=== PATIENT | female | born 1960 | race Caucasian/White ===

== ENCOUNTER 2021-03-06 10:23 | Observation (INO) | payer OTHER ==
[~2021-03-06] VITALS: Ht 162.6 cm; Wt 121.0 kg
[~2021-03-06 10:23] MED LIST: ADALAT CC30 MG PO; ADVIL200 MG PO; BACTRIM DS1 TAB PO; BACTROBAN TOP; BUMETANIDE1 MG PO; CEFAZOLIN SODIUM2 GM IV; CEPHALEXIN500 MG PO; CHLORTHALIDONE25 MG PO; CIPROFLOXACN750 MG PO; CLONIDINE0.1 MG PO; CYMBALTA60 MG PO; DAPSONE100 MG PO; DAPSONE25 MG PO; DOXYCYC MONO100 M2 PO; FERROUS SULFAT325 MG PO; FLORASTOR250 M1 PO; FLUARIX QUADRIV1 IN1 IM; FLUCONAZOLE100 MG PO; FUROSEMIDE40 MG PO; GABAPENTIN400 M2 PO; GLIPIZIDE ER5 M1 PO; GLIPIZIDE5 MG PO; HYDROCHLOROT12.5 M1 PO; HYDROCORTISO2.51 EX; HYTONE2.5 % EX; IRON325 M1 PO; K-DUR/KLOR-CON20 MEQ PO; KEFLEX500 M1 PO; LASIX20 MG PO; LEVAQUIN750 MG PO; LISINOP/HCTZ1 TA1 PO; LISINOPRIL10 MG PO; LISINOPRIL20 M1 PO; METOLAZONE2.5 MG PO; METOPROL TAR25 MG PO; MUPIROCIN21; MYCOPHENOLAT250 MG PO; NEURONTIN400 MG PO; NORVASC10 M1 PO; NYSTOP100000 UNI TOP; OMEPRAZOLE20 M1 PO; OXYCODONE HCL5 MG PO; PREDNISONE10 MG PO; PREDNISONE20 MG PO; PRILOSEC20 MG PO; PROTOPIC0.1 % EX; SAVELLA50 MG PO; SILVER SULFA1 % TOP; TACROLIMUS0.1 %; TENORMIN25 M1 PO; TORADOL PO; TRAMADOL HCL50 MG PO; TYLENOL 8 HOUR650 MG PO; ULTRAM50 M1 PO; ULTRAM50 MG PO; VICOPROFEN PO; VITAMIN B-121000 MCG PO; ZANTAC 150 PO; ZOFRAN4 M1 OR
--- NOTE | 2021-03-06 10:23 | NUR ---
PT IMMEDIATLY TO TREATMENT AREA. PT INSTRUCTED ON PLAN OF CARE.
[2021-03-06 11:08] LABS: IMMATURE GRANULOCYTES 0.6 % (0.0-5.0); MEAN CELL VOLUME 94.2 fL CALC (80.0-100.0); MEAN CORPUSCULAR HGB 29.6 pG CALC (26.0-32.0); MEAN CORPUSCULAR HGB CONC 31.4 g/dL CAL (32.0-36.0); NEUT# 8.39 thou/uL (2.00-7.15); RED BLOOD COUNT 4.33 mill/uL (4.20-5.60); RED CELL DISTRI WIDTH 15.2 % (11.5-15.5)
[2021-03-06 11:09] LABS: HEMATOCRIT 40.8 % (37.0-47.0); HEMOGLOBIN 12.8 g/dl (12.0-16.0)
[2021-03-06 11:26] LABS: BUN 7 mg/dL (7-17); BUN/CREATININE RATIO 11 (12-20 (CALC)); CARBON DIOXIDE 29 mmol/l (22-30); CHLORIDE 94 mmol/l (95-108); CREATININE 0.6 mg/dL (0.5-1.0); GFR > 60 ML/MIN (>=60 (CALC)); GFR FOR AFR.AMER. > 60 ML/MIN (>=60 (CALC)); SGOT/AST 20 u/l (14-36); SODIUM 133 mmol/l (137-146)
[2021-03-06 11:29] LABS: ALBUMIN 4.2 g/dL (3.2-5.0); ALKALINE PHOSPHATASE 132 u/l (38-126); ANION GAP 13 (6-22 (CALC)); BILIRUBIN, TOTAL 1.5 mg/dL (0.0-1.4); POTASSIUM 3.2 mmol/l (3.5-5.1); TOTAL PROTEIN 8.7 g/dL (6.3-8.2)
--- NOTE | 2021-03-06 11:30 | NUR ---
RESTING ON STRETCHER. CALL FERRIS WITHIN REACH.
[2021-03-06 11:39] LABS: MYOGLOBIN 49 ng/mL (0 - 62)
--- NOTE | 2021-03-06 11:40 | NUR ---
BP INCREASING. MD AT BEDSIDE NEW ORDERS RECEIVED.
--- NOTE | 2021-03-06 12:05 | NUR ---
PT COMPLAINS OF SUDDEN ONSET CHEST HEAVINESS AFTER ADMINISTRATION OF MORPHINE AND LABETALOL. REPEAT EKG OBTAINED AND MD AT BEDSIDE. PT HYPOTENSIVE AT 80/46. NEW ORDER RECEIVED TO ADMINISTER NSS 1LITER BOLUS
--- NOTE | 2021-03-06 13:00 | NUR ---
RESTING ON STRETCHER. CALL FERRSI WITHIN REACH. RESTING COMFORTABLY
[2021-03-06 14:00] LABS: URINE BILIRUBIN - DIPSTICK NEGATIVE (NEGATIVE); URINE BLOOD DIPSTICK NEGATIVE (NEGATIVE); URINE COLOR YELLOW; URINE GLUCOSE - DIPSTICK 500 mg/dL (NEGATIVE); URINE KETONE TRACE mg/dL (NEGATIVE); URINE LEUK ESTERASE TRACE (NEGATIVE); URINE PH 8.5 (4.5-8.0); URINE PROTEIN - DIPSTICK TRACE mg/dL (NEG-TRACE); URINE UROBILINOGEN - DIPSTICK 0.2 E.U./dL (0.2)
--- NOTE | 2021-03-06 14:00 | NUR ---
RESTING ON STRETCHER. CALL FERRIS WITHIN REACH. AWAITNING ROOM ASSIGNMENT
[2021-03-06 14:01] LABS: URINE NITRITE - DIPSTICK POSITIVE (Negative)
[2021-03-06 14:02] LABS: URINE BACTERIA MANY hpf; URINE EPITHELIAL CELLS MODERATE EPI/hpf (0-FEW)
--- NOTE | 2021-03-06 15:18 | NUR ---
ATTEMPTED TO CALL REPORT. RN FROM FLOOR TO RETURN CALL.
--- NOTE | 2021-03-06 15:34 | NUR ---
REPORT CALLED TO CARLOS ESCAMILLA. TRANSPORTED TO FLOOR IN STABLE CONDITION ON TELE
--- NOTE | 2021-03-06 16:00 | NUR ---
REPORT RECEIVED FORM LIBBY IN ED, PT ARRIVED ON UNIT 1553, ALERT AND ORIENTED X 4, ORIENTED TO ROOM AND CALL FERRIS, C/O GENERALISED ACING PAIN @ 07/05, IVF INFUSING, TELE MOITOR IN PLACE, WOUNDS TO LEFT THIGH AND LEFT LOWER LEG OBSERVED WHICH PT STATES ARE EXACERBATION OF SKIN CONDITION, 2 WOUNDS ARE NON-DRAINING AND OTHERS ARE SCABBED OVER, SHE USES WHEELCHAIR AT HOME FOR MOBILITY NEEDS AND ALSO USES O2 AT BEDTIME. ALL NEEDS ARE ADDRESSED, WILL CONTINUE TO MONITOR.
[2021-03-06 16:08] VITALS: BP 159/102
[2021-03-06 19:30] VITALS: BP 165/81
--- NOTE | 2021-03-06 20:00 | NUR ---
PHYSICAL ASSESMENT COMPLETE. PT CURRENTLY DENIES PAIN OR DISCOMFORT. SCHEDULED MEDICATIONS AND PRN MEDICATION ADMINISTERED, SEE E-MAR. PT DENIES ANY NEEDS AT THIS TIME. PLAN OF CARE REVIEWED WITH DAUGHTER. PT VERY CONFUSED AND DISORIENTED. ITEMS WITHIN REACH, BED LOCKED IN LOW POSITION W/ BEDRAILS UP X2. CALL FERRIS WITHIN REACH, AGREES TO CALL PRN.
[2021-03-06 23:30] VITALS: BP 167/90
[2021-03-07] VITALS (8 sets, daily range): BP systolic 159–190; BP diastolic 85–96
--- NOTE | 2021-03-07 | NUR ---
PT LAYING IN BED WITH EYES CLOSED, APPEARS TO BE SLEEPING, APPEARS COMFORTABLE AND IN NO DISTRESS. RESPIRATIONS REGULAR AND UNLABORED. ITEMS REMAIN WITHIN REACH, CALL FERRIS REMAINS WITHIN REACH. BED REMAINS LOCKED AND IN LOW POSITION WITH BEDRAILS UP X2. WILL CONTINUE TO MONITOR.
--- NOTE | 2021-03-07 04:00 | NUR ---
PT RESTING IN BED, NO SIGNS OF DISTRESS NOTED, RESP EVEN AND UNLABORED. PT VOICES NO NEEDS OR COMPLAINTS AT THIS TIME. CALL LIGHT IN REACH, CONTINUE TO MONITOR.
[2021-03-07 06:45] LABS: MAGNESIUM 1.7 mg/dL (1.6-2.3)
--- NOTE | 2021-03-07 07:10 | NUR ---
REPORT RECEIVED FROM CARLOS CISNEROS
--- NOTE | 2021-03-07 08:10 | NUR ---
PT RESTING IN SEMI FOWLERS POSITION,A&O X3; VS OBTAINED AND ASSESSMENT COMPLETED;PT REPORTS GENERALIZED PAIN RATING 6/10 ON THE PAIN SCALE AND REQUESTS PRN PAIN MEDICATION, PT MEDICATED WITH PRN TYLENOL 650MG PO;RESPIRATIONS EVEN AND UNLABORED ON RA,CLEAR LUNG SOUNDS;ABDOMEN DISTENDED/SOFT ON PALPATION AND ACTIVE IN ALL 4 QUADRANTS;PUREWICK CATHETER IN PLACE DUE TO INCONTINENCE;WEAK PEDAL PULSES;WOUND TO LEFT THIGH DRESSED AT THIS TIME AND SCABBING NOTED TO LLE;TELE MONITORING IN PLACE;#20G TO RAC INFUSING NS @ 50ML/HR,SITE APPEARS HEALTHY;ACCUCHECK 201, PT COVERED WITH SLIDING SCALE INSULIN PER ORDER;PT DENIES ANY ADDITIONAL NEEDS AND IS ENCOURAGED TO CALL FOR ASSISTANCE IF NEEDED;FALL PRECAUTIONS IN PLACE WITH BED IN THE LOWEST POSITION AND CALL LIGHT IN REACH;WILL CONTINUE TO MONITOR
--- NOTE | 2021-03-07 11:00 | NUR ---
PT RESTING IN SEMI FOWLERS POSITION;RESPIRATIONS EVEN AND UNLABORED ON RA;PT DENIES ANY CURRENT PAIN OR DISCOMFORTS;TELE MONITORING IN PLACE;IV SITE PATENT INFUSING NS PER ORDER;QUINN PATENT;ACCUCHECK 288, PT COVERED WITH SLIDING SCALE INSULIN PER ORDER;PT DENIES ANY ADDITIONAL NEEDS;ENCOURAGED TO CALL FOR ASSISTANCE IF NEEDED;CALL LIGHT IN REACH;WILL CONTINUE TO MONITOR
--- NOTE | 2021-03-07 14:24 | NUR ---
PT ENCOURAGED TO HAVE HOME MEDICATION (DAPSON) BROUGHT IN FROM HOME, PT VERBALIZES UNDERSTANDING AND REPORTS THAT HER DAUGHTER WILL BRING IN BED THIS AFTERNOON.
--- NOTE | 2021-03-07 15:40 | NUR ---
PT RESTING IN SEMI FOWLERS POSITION AFTER RECEIVING BED BATH FROM ADRIANA ORLANDO;RESPIRATIONS EVEN AND UNLABORED ON RA;PT DENIES ANY CURRENT PAIN OR DISCOMFORTS;TELE MONITORING IN PLACE;PUREWICK CATHETER PATENT;#20G TO RAC INFUSING NS WITH EASE;PT DENIES ANY ADDITIONAL NEEDS AND IS ENCOURAGED TO CALL FOR ASSISTANCE IF NEEDED;CALL LIGHT IN REACH;WILL CONTINUE TO MONITOR
--- NOTE | 2021-03-07 16:54 | NUR ---
PT CURRENT BP 190/96 HR 87, PT ASYMPTOMATIC AT THIS TIME;PT TO BE MEDICATED WITH PRN LABETOLOL SLOW IVP PER ORDER BY CARLOS DUNN;WILL CONTINUE TO MONITOR
--- NOTE | 2021-03-07 17:35 | NUR ---
BP RE-CHECK 171/85 HR 85.
--- NOTE | 2021-03-07 17:56 | NUR ---
BP RE-CHECK 160/90
--- NOTE | 2021-03-07 20:00 | NUR ---
PHYSICAL ASSESMENT COMPLETE. PT CURRENTLY DENIES PAIN OR DISCOMFORT. SCHEDULED MEDICATIONS AND PRN MEDICATION ADMINISTERED, SEE E-MAR. PT DENIES ANY NEEDS AT THIS TIME. PLAN OF CARE REVIEWED, PT DENIES QUESTIONS, VERBALIZES UNDERSTANDING. ITEMS WITHIN REACH, BED LOCKED IN LOW POSITION W/ BEDRAILS UP X2. CALL FERRIS WITHIN REACH, AGREES TO CALL PRN.
--- NOTE | 2021-03-08 00:35 | NUR ---
PTS BP 179/96. ADMINISTERED PRN MEDICATION FOR SYSTOLIC BP FOR BP 180 OR GREATER. PT RESTING IN BED. WILL CONTINUE TO MONITOR.
[2021-03-08 03:24] VITALS: BP 154/92
[2021-03-08 05:30] LABS: HEMATOCRIT 35.2 % (37.0-47.0); IMMATURE GRANULOCYTES 0.6 % (0.0-5.0); MEAN CORPUSCULAR HGB 29.5 pG CALC (26.0-32.0); MEAN CORPUSCULAR HGB CONC 29.5 g/dL CAL (32.0-36.0); NEUT# 6.66 thou/uL (2.00-7.15); RED BLOOD COUNT 3.52 mill/uL (4.20-5.60); RED CELL DISTRI WIDTH 15.6 % (11.5-15.5)
[2021-03-08 05:41] LABS: HEMOGLOBIN 10.4 g/dl (12.0-16.0)
[2021-03-08 06:05] LABS: ALKALINE PHOSPHATASE 85 u/l (38-126); BUN 8 mg/dL (7-17); BUN/CREATININE RATIO 17 (12-20 (CALC)); CARBON DIOXIDE 29 mmol/l (22-30); CHLORIDE 101 mmol/l (95-108); CREATININE 0.5 mg/dL (0.5-1.0); GFR > 60 ML/MIN (>=60 (CALC)); GFR FOR AFR.AMER. > 60 ML/MIN (>=60 (CALC)); SGOT/AST 14 u/l (14-36); SODIUM 135 mmol/l (137-146)
[2021-03-08 06:19] LABS: ALBUMIN 3.2 g/dL (3.2-5.0); ANION GAP 9 (6-22 (CALC)); BILIRUBIN, TOTAL 0.4 mg/dL (0.0-1.4); POTASSIUM 4.3 mmol/l (3.5-5.1); TOTAL PROTEIN 6.9 g/dL (6.3-8.2)
[2021-03-08 07:10] VITALS: BP 185/93
--- NOTE | 2021-03-08 07:10 | NUR ---
PATIENT LAYING IN BED AT THIS TIME ALERT AND ORIENTED X 3 CALL LIGHT WITHIN REACH SIDERAILS UP X 2. PATIENT HAS PURWICK CATH IN PLACE DRAINING YELLOW URINE AT THIS TIME. PATIENT DENIES ANY PAIN CURRENTLY. LUNG ROBERT ARE CLEAR/BOWEL SOUNDS ARE PRESENT. TELE MONITOR IN PLACE AND BEING MONITORED BY ED. RIPPLER DONE AT THIS TIME SEE INTERVENTIONS.
[2021-03-08] MEDS ORDERED: LOSARTAN POTASS50 MG PO (10:06)
[2021-03-08] MEDS ORDERED: PANTOPRAZOLE SO40 M1 PO (10:06)
[2021-03-08] MEDS ORDERED: OMNICEF300 MG PO (10:07)
[2021-03-08 10:46] VITALS: BP 178/91
[2021-03-08 10:52] VITALS: BP 160/90
--- NOTE | 2021-03-08 12:00 | NUR ---
PATIENT D/C AT THIS TIME. PATIENT VERBALIZES D/C INSTRUTIONS AND WAS TOLD THAT SHAR FROM CASE MANAGEMENT WOULD BE CONTACTING HER REGARDING SETTING UP [facility] FOR HER ON TUESDAY. PATIENT VERBALIZES AND UNDERSTANDS.
--- NOTE | 2021-03-08 14:09 | NUR ---
Discharge instructions given. Patient verbalizes understanding of same. Discharged in stable condition via Wheelchair to Home with friend. All belongings sent with pt. PATIENT D/C WITH FRIEND AT THIS TIME. PATIENT REMINDED THAT MANAGER DENTAL WILL CALL TOMORROW TO SET UP HOM[facility]ARE. INFORMATION OF THIS NEED LEFT IN CUSTOMER SERVICE SPECIALIST OFFICE INSTRUCTED BY CHRIS ON-CALL MANAGER DENTAL.
== END 2021-03-08 14:09 | disposition home or self-care (01) ==
LOC: ED 10:23 → ED-I 13:00 → ED 13:17 → MS2 13:18
PROVIDERS: Emergency Medicine; Physician Assistant; ADMIT Internal Medicine; ATTEND Internal Medicine
DX: N30.90 Cystitis, unspecified without hematuria (principal); E11.65 Type 2 diabetes mellitus with hyperglycemia; I11.0 Hypertensive heart disease with heart failure; I50.9 Heart failure, unspecified; L88 Pyoderma gangrenosum; E87.6 Hypokalemia; E87.1 Hypo-osmolality and hyponatremia; S71.102A Unspecified open wound, left thigh, initial encounter; K29.70 Gastritis, unspecified, without bleeding; E11.51 Type 2 diabetes mellitus with diabetic peripheral angiopathy without gangrene; L97.929 Non-pressure chronic ulcer of unspecified part of left lower leg with unspecified severity; M06.9 Rheumatoid arthritis, unspecified; M79.7 Fibromyalgia; I89.0 Lymphedema, not elsewhere classified; K21.9 Gastro-esophageal reflux disease without esophagitis; B96.20 Unspecified Escherichia coli [E. coli] as the cause of diseases classified elsewhere; Z99.3 Dependence on wheelchair; Z79.84 Long term (current) use of oral hypoglycemic drugs; Z99.81 Dependence on supplemental oxygen; Z20.822 Contact with and (suspected) exposure to COVID-19
CPT/HCPCS: G0378

== ENCOUNTER 2021-03-17 21:19 | Inpatient (IN) | payer OTHER ==
[~2021-03-17] VITALS: Ht 162.6 cm; Wt 117.0 kg
[~2021-03-17 21:19] MED LIST changes: +LOSARTAN POTASS50 MG PO; +OMNICEF300 MG PO; +PANTOPRAZOLE SO40 M1 PO
--- NOTE | 2021-03-17 21:20 | NUR ---
BY EMS TO ROOM 11
[2021-03-17 22:02] LABS: HEMATOCRIT 43.9 % (37.0-47.0); HEMOGLOBIN 14.3 g/dl (12.0-16.0); MEAN CELL VOLUME 92.6 fL CALC (80.0-100.0); MEAN CORPUSCULAR HGB 30.2 pG CALC (26.0-32.0); MEAN CORPUSCULAR HGB CONC 32.6 g/dL CAL (32.0-36.0); NEUT# 8.48 thou/uL (2.00-7.15); RED BLOOD COUNT 4.74 mill/uL (4.20-5.60); RED CELL DISTRI WIDTH 14.3 % (11.5-15.5)
[2021-03-17 22:15] LABS: ALKALINE PHOSPHATASE 108 u/l (38-126); BUN 10 mg/dL (7-17); BUN/CREATININE RATIO 14 (12-20 (CALC)); CARBON DIOXIDE 30 mmol/l (22-30); CREATININE 0.8 mg/dL (0.5-1.0); GFR > 60 ML/MIN (>=60 (CALC)); GFR FOR AFR.AMER. > 60 ML/MIN (>=60 (CALC)); SGOT/AST 23 u/l (14-36)
[2021-03-17 22:31] LABS: ALBUMIN 4.1 g/dL (3.2-5.0); ANION GAP 16 (6-22 (CALC)); BILIRUBIN, TOTAL 1.4 mg/dL (0.0-1.4); CHLORIDE 85 mmol/l (95-108); SODIUM 128 mmol/l (137-146); TOTAL PROTEIN 8.4 g/dL (6.3-8.2)
--- NOTE | 2021-03-17 22:45 | NUR ---
Reassessment of patient completed. No distress noted.
--- NOTE | 2021-03-17 23:00 | NUR ---
PT SLEEPING. Reassessment of patient completed. No distress noted.
[2021-03-18] VITALS (8 sets, daily range): BP systolic 98–129; BP diastolic 53–83
--- NOTE | 2021-03-18 00:49 | NUR ---
Reassessment of patient completed. No distress noted. PT SLEEPING.
--- NOTE | 2021-03-18 01:26 | NUR ---
Reassessment of patient completed. No distress noted. HEAD OF BED RAISED. TOLERATED WELL.
--- NOTE | 2021-03-18 01:50 | NUR ---
PT. PLACED ON HOSPITAL BED FOR COMFORT. NO C/O AT THIS TIME. SMALL FINE RAISED REDDENED RASH TO BACK PT. STATES HE HAS A PMH OF DERMATITIS.
--- NOTE | 2021-03-18 03:17 | NUR ---
Reassessment of patient completed. No distress noted. SLEEPING.
--- NOTE | 2021-03-18 03:19 | NUR ---
UNABLE TO RECONCILE MEDICATIONS. PT IS UNABLE TO RECALL MED LIST AT THIS TIME.
--- NOTE | 2021-03-18 05:32 | NUR ---
PT TRANSFERRED TO ICU INPATIENT BED WHILE BOARDING IN THE ED. PT WILL BE TRANSFERRED TO ICU IN THE A.M. DURING THE DAY SHIFT.
--- NOTE | 2021-03-18 06:07 | NUR ---
Reassessment of patient completed. No distress noted. PT SLEEPING.
[2021-03-18 10:02] LABS: CHOLESTEROL HDL RATIO 2.3 (<4.4 (CALC))
--- NOTE | 2021-03-18 10:12 | NUR ---
PATIENT REPOSITONED AND GABRIELAS CHANGED, DISCUSSED PPOC AND ANSWER QUESTIONS
--- NOTE | 2021-03-18 12:20 | NUR ---
LUNCH TRAY SERVED
--- NOTE | 2021-03-18 14:53 | NUR ---
PATIENT C/O NAUSEA MEDICATED WITH ZOFRAN PER PRN ORDERS
--- NOTE | 2021-03-18 15:15 | NUR ---
REPORT CALLED TO KIRK Laws RN ICU ROOM 2
--- NOTE | 2021-03-18 15:30 | NUR ---
PT TO ROOM ICU BED 2 VIA BED ACCOMPANIED BY ER NURSES. ASSESSMENT COMPLETED. KINGSTON PLACED USING STERILE TECHNIQUE. URINE SPECIMEN OBTAINED. PT TOLERATED WELL. IV PATENT X1. MULTIPLE ATTEMPTS MADE FOR A SECOND IV. D ISRAEL CONNORS NOTIFIED. ORDERES RECEIVED FOR CENTRAL LINE PLACEMENT. CONSENT NOTIFIED. ORIENTED TO ROOM AND UNIT. ACCUCHECK 281. CALL LIGHT IN REACH. WILL CONTINUE TO MONITOR.
--- NOTE | 2021-03-18 15:45 | NUR ---
Admission Note Report Given to: Transported by: Wheelchair X Stretcher Transported with: X Nurse X Transporter X Patent IV X O2 X Crozer Operator Location: X ICU MS2
--- NOTE | 2021-03-18 16:00 | NUR ---
PICS OBTAINED OF MULTIPLE WOUNDS SEE PICS ON CHART
[2021-03-18 16:24] LABS: URINE BLOOD DIPSTICK MODERATE (NEGATIVE); URINE GLUCOSE - DIPSTICK 100 mg/dL (NEGATIVE); URINE KETONE NEGATIVE (NEGATIVE); URINE LEUK ESTERASE NEGATIVE (NEGATIVE); URINE PROTEIN - DIPSTICK 100 mg/dL (NEG-TRACE); URINE UROBILINOGEN - DIPSTICK 0.2 E.U./dL (0.2)
[2021-03-18 16:31] LABS: URINE BILIRUBIN - DIPSTICK MODERATE (NEGATIVE); URINE NITRITE - DIPSTICK POSITIVE (Negative)
[2021-03-18 16:32] LABS: URINE COLOR DK. YELLOW
[2021-03-18 16:34] LABS: URINE BACTERIA FEW hpf; URINE SQUAMOUS EPITHELIAL CELL FEW EPI/hpf (0-FEW)
--- NOTE | 2021-03-18 18:00 | NUR ---
PT SITTING UP IN BED EATING DINNER. RESP ARE EVEN AND UNLABORE.D NO COMPLAINTS VOCIED. [facility]. WILL CONTINUE TO [facility].
--- NOTE | 2021-03-18 18:24 | NUR ---
DR MACK AT BEDSIDE AT THIS TIME TO PLACE CENTRAL LINE AT THIS TIME.
--- NOTE | 2021-03-18 19:13 | NUR ---
RIJ TRIPLE LUMEN INTACT, FLUSHES AND RETURNS BLOOD PROPERLY. BLOOD FOR TROPONIN DRAWN. POTASSIUM IV INFUSING PROPERLY. PATIENT AWAKE, LAYS IN JIMÉNEZ'S. DENIES CHEST PAIN. POC DISCUSSES, UNDERSTANDS AND AGREES. CALL LIGHT WITHIN REACH.
--- NOTE | 2021-03-18 19:52 | NUR ---
SY JEAN-BAPTISTE CALLED HERE FOR UPDATES OF PATIENT. I ASKED PATIENT FOR CONSENT AND PATIENT AGREED TO PROVIDE PASSCODE WELL. UPDATES GIVEN.
--- NOTE | 2021-03-18 21:20 | NUR ---
PATIENT AWAKRENS EASILY WHEN SPOKEN TO. IS ORIENTED X4. ON 2 L/MIN NC, O2 SATS 93%-94%, NO SOB NOTED. NURSE ASSESSMENT PERFORMED. VS WNL. SR ON TELEMETRY. RIJ TRIPLE LUMEN INTACT. NS INSFUSING AT 75 ML/HR. [place] CATHETER IN PACE, DRAINS YELLOW/CLOUDY URINE. TOLERATES BEDTIME MEDICATIIONS WELL WITH WATER. DENIES PAIN. PATIENT REPORTS SHE LIVES AT HOME ALONE, IS ABLE TO TAKE A FEW STEPS HOLDING ON TO FURNITURE, WASHES HER OWN CLOTHES, DOES EVERYTHING SITTING DOWN THOUGH, IS ABLE TO BUY HER GROCREIES JUST RECENTLY. IS ABLE TO REPOSITION HERSELF IN BED, LAYS ON HER RIGHT SIDE, IS AWARE SHE HAS WOUNDS ON HER LEFT THIGH/LEG. CALL LIGHT WITHIN REACH.
--- NOTE | 2021-03-18 23:35 | NUR ---
CALLED AND SPOKE TO DR ARMENTA REGARDING ORDER FOR LASIX 40 MG IV, PATIENT REPORTS SHE GETS TACHYCARDIA AND THROAT SWELLS. NEW ORDERS GIVEN.
[2021-03-19] VITALS (11 sets, daily range): BP systolic 112–155; BP diastolic 61–88
--- NOTE | 2021-03-19 00:42 | NUR ---
BLOOD DRAWN FOR TROPONIN DUE. NO ACUTE DISTRESS SHOWN.
--- NOTE | 2021-03-19 04:04 | NUR ---
PATIENT IS AWAKE. NO ACUTE DISTRESS SHOWN, WATCHES TV. BLOOD DRAWN FROM CENTRAL LINE.
[2021-03-19 05:45] LABS: HEMATOCRIT 39.6 % (37.0-47.0); HEMOGLOBIN 12.4 g/dl (12.0-16.0); MEAN CORPUSCULAR HGB 29.7 pG CALC (26.0-32.0); MEAN CORPUSCULAR HGB CONC 31.3 g/dL CAL (32.0-36.0); RED BLOOD COUNT 4.17 mill/uL (4.20-5.60); RED CELL DISTRI WIDTH 14.5 % (11.5-15.5)
[2021-03-19 06:04] LABS: CREATININE 1.5 mg/dL (0.5-1.0)
[2021-03-19 06:05] LABS: MAGNESIUM 2.9 mg/dL (1.6-2.3); POTASSIUM 5.1 mmol/l (3.5-5.1)
--- NOTE | 2021-03-19 06:45 | NUR ---
REPORT RECEIVED FROM RALPH GONZALEZ. CARE ASSUMED.
--- NOTE | 2021-03-19 07:30 | NUR ---
PT RESTING IN BED WITH EYES CLOSED. AROUSES EASILY TO VERBAL STIMULI. PT IS ALERT AND ORIENTED X3. SHIFT ASSESSMENT COMPLETED AT THIS TIME. IV PATENT X2. CALL LIGHT IN REACH. WILL CONTINUE TO MONTIOR.
--- NOTE | 2021-03-19 07:50 | NUR ---
PT SET UP FOR AM MEAL. WILL CONTINUE TO MONITOR.
--- NOTE | 2021-03-19 08:40 | NUR ---
DR CHILD AT BEDSIDE AT THIS TIME. PLAN OF CARE DISCUSSED.
--- NOTE | 2021-03-19 10:15 | NUR ---
PT RESTING IN BED AWAKE AT THIS TIME. RESP ARE EVEN AND UNLABORED. NO DISTRESS NOTED. CALL LIGHT IN REACH. WILL CONTINUE TO MONITOR.
--- NOTE | 2021-03-19 12:00 | NUR ---
PT SET UP FOR NOON MEAL. PT TOLERATING WELL. CALL LIGHT IN REACH. WILL CONTINUE TO MONTIOR.
--- NOTE | 2021-03-19 14:00 | NUR ---
PT RESTING IN BED WATCHING TV. RESP ARE EVEN AND UNLABORED. NO DISTRESS NOTED. CALL LIGHT IN REACH. WILL CONTINUE TO MONITOR.
--- NOTE | 2021-03-19 14:58 | NUR ---
CALLED PHARMACY TO HAVE THEM RESERCH HOME DIURETIC
--- NOTE | 2021-03-19 15:08 | NUR ---
REPORT CALLED TO LAVELL GONZALEZ ON MED SURG.
[2021-03-19] MEDS ORDERED: SPIRONOLACT50 MG PO (15:28)
--- NOTE | 2021-03-19 15:40 | NUR ---
PT TO MED SURG VIA BED ACCOMPANIED BY NURSES AND CNAS. PT TOLERATED TRANSFER WELL.
--- NOTE | 2021-03-19 15:45 | NUR ---
PATIENT RECEIVED FROM ICU AT THIS TIME TO MED/SURG. PATIENT RE-ORIENTED TO NEW ROOM AND SURROUNDING. PATIENT DENIES ANY PAIN AND OR NEEDS AT THIS TIME. PHYSICAL THERAPY IN TO SEE PATIENT AND WOUND CARE PHYSICIAN Gaviota BUSH MD IN TO SEE PATIENT. WOUND CARE ORDERS WRITTEN AND FAX TO PHARMACY AT THIS TIME. SIDERAILS ARE UP CALL LIGHT WITHIN REACH. PATIENT PRESENTS WITH A TRIPLE LUMEN RT. IJ THAT IS SALINE LOCKED AT THIS TIME. SIDERAILS ARE UP CALL LIGHT IS WITHIN REACH.
--- NOTE | 2021-03-20 02:00 | NUR ---
PT IN BED WITH EYES CLOSED WITH NO S/S OF DISTRESS NOTED. RESPIRATION EVEN AND NON LABORED. KINGSTON CATH DRAINING JACOBY COLORED URINE WITH NO COMPLICATIONS. CALL LIGHT WITHIN REACH. WILL CONTINUE TO OBSERVE.
[2021-03-20 04:03] VITALS: BP 150/79
--- NOTE | 2021-03-20 07:10 | NUR ---
REPORT RECEIVED FROM CARLOS BASSETT
[2021-03-20 07:24] LABS: HEMATOCRIT 36.5 % (37.0-47.0); HEMOGLOBIN 11.3 g/dl (12.0-16.0); MEAN CELL VOLUME 96.3 fL CALC (80.0-100.0); MEAN CORPUSCULAR HGB 29.8 pG CALC (26.0-32.0); RED BLOOD COUNT 3.79 mill/uL (4.20-5.60); RED CELL DISTRI WIDTH 14.4 % (11.5-15.5)
--- NOTE | 2021-03-20 07:40 | NUR ---
AT BEDSIDE DISCUSSING POC.
[2021-03-20 07:45] LABS: ANION GAP 12 (6-22 (CALC)); BUN 27 mg/dL (7-17); BUN/CREATININE RATIO 28 (12-20 (CALC)); CARBON DIOXIDE 26 mmol/l (22-30); CHLORIDE 99 mmol/l (95-108); GFR 57 ML/MIN (>=60 (CALC)); GFR FOR AFR.AMER. > 60 ML/MIN (>=60 (CALC)); POTASSIUM 4.8 mmol/l (3.5-5.1); SODIUM 132 mmol/l (137-146)
[2021-03-20 08:40] VITALS: BP 131/72
--- NOTE | 2021-03-20 08:40 | NUR ---
PT RESTING IN SEMI FOWLERS POSITION,A&O X3;VS OBTAINED AND ASSESSMENT COMPLETED;PT DENIES ANY CURRENT PAIN OR DISCOMFORTS,PAIN SCALE AND REPORTING EDUCATED;RESPIRATIONS EVEN AND UNLABORED ON RA;ABDOMEN SOFT ON PALPATION AND ACTIVE IN ALL 4 QUADRANTS;WEAK PEDAL PULSES;BLE HEALING WOUNDS NOTED,PER WOUND CARE ORDERS SITES TO BE LEFT JACQUELINE AND SKIN PREP APPLIED;TELE MONITORING IN PLACE;[place]ON CATHETER DRAINING TO GRAVITY WITH EASE,STAT LOCK RIGHT THIGH;RT TL IJ FLUSHED AND PATENT,SITE APPEARS HALTHY AND NS INFUSING @ 75ML/HR PER ORDER;ACCUCHECK 134, NO COVERAGE NEEDED;PT DENIES ANY ADDITIONAL NEEDS AND IS ENCOURAGED TO CALL FOR ASSISTANCE IF NEEDED;FALL PRECAUTIONS IN PLACE WITH BED IN THE LOWEST POSITION AND CALL LIGHT IN REACH;WILL CONTINUE TO MONITOR
--- NOTE | 2021-03-20 09:46 | NUR ---
PHYSICAL THERPAY AT BEDSIDE WORKING WITH PT.
[2021-03-20 10:23] VITALS: BP 140/74
--- NOTE | 2021-03-20 11:00 | NUR ---
PT OOB RESTING IN RECLINER;RESPIRATIONS EVEN AND UNLABORED ON RA;PT DENIES ANY CURRENT PAIN OR DISCOMFORTS;TELE MONITORING IN PLACE RT TL IJ REMAINS PATENT INFUSING NS @ 10ML/HR PER ORDER;ACCUCHECK 188, PT COVERED WITH SLIDING SCALE INSULIN AT THIS TIME;[place] CATHETER REMOVED AND PT TOLERATED WELL;PT DENIES ANY ADDITIONAL NEEDS;ENCOURAGED TO CALL FOR ASSISTANCE IF NEEDED;CALL LIGHT IN REACH;WILL CONTINUE TO MONITOR
--- NOTE | 2021-03-20 13:52 | NUR ---
Physical Therapy Note Patient seen and treated today. Patient identified by full name and date of . Phyical Therapy Management 1. Active range of motion of the head and neck x 10 repetitions. 2. Bilateral shoulder shrugs x 10 repetitions. 3. Round of the shoulder x 10 repetitions. 4. Standing tolerance x 1-3 minutes. 5. Sitting tolerance x 10-15 minutes. Rest periods given in between exercises. Patient was able to perform all exercises with minimal fatigue. Patient went back to bed after physical therapy session. Call button within reach.
--- NOTE | 2021-03-20 14:15 | NUR ---
PT REPORTS GENERALIZED PAIN RATING 10/10 ON THE PAIN SCALE AND REQUESTS PAIN MEDICATION,PT MEDICATED WITH PRN TYLENOL 650MG PO AT THIS TIME;WILL CONTINUE TO MONITOR
[2021-03-20 15:08] VITALS: BP 156/83
--- NOTE | 2021-03-20 16:00 | NUR ---
PT OOB RESTING IN RECLINER WATCHING TV;RESPIRATIONS EVEN AND UNLABORED ON RA;PT DENIES ANY CURRENT PAIN OR DISCOMFORTS;TELE MONITORING IN PLACE;RT TL IJ INFUSING NS @ 10ML/HR,SITE APPEARS HEALTHY;PT DENIES ANY ADDITIONAL NEEDS AND IS ENCOURAGED TO CALL FOR ASSISTANCE IF NEEDED;FALL PRECAUTIONS IN PLACE WITH CALL LIGHT IN REACH;WILL CONTINUE TO MONITOR
[2021-03-20 20:00] VITALS: BP 167/83
--- NOTE | 2021-03-20 22:24 | NUR ---
PT UP IN CHAIR AT START OF SHIFT. PT REQUESTED THE BSC TO HAVE A BM, WHICH WAS SUCCESSFUL. PT REPORTS SHE IS MOSTLY INCONTINET AND REQUESTED A PURE WICK FOR TONIGHT. PURE WICK APPLIED PER REQUEST, ALSO PLACE A BRIEF ON PT JUST IN CASE. PT SATISFIED WITH PURE WICK AND BRIEF. NO COMPLAINTS VOICED. BREATHING EVEN AND UNLABORED. NO S/S OF DISTRESS NOTED. HEART RYTHM WNL, ON TELE SR WITH PAC. PT HAS INDICATED THAT SHE WOULD PREFER A FEMALE GANTRY CRANE OPERATOR/NURSE TO ASSIST HER WITH ADL'S. ADVISED PT THAT THIS NURSE WILL ASSIST HER THROUGHOUT THE NIGHT D/T ONLY A MALE GANTRY CRANE OPERATOR ON SHIFT TONIGHT. NO S/S OF DISTRESS NOTED. SAFETY PRECAUTIONS IN PLACE, BED IN LOWEST POSITION, CALL LIGHT WITHIN REACH. WILL CONTINUE TO MONITOR
[2021-03-20 23:46] VITALS: BP 165/82
[2021-03-21] VITALS (11 sets, daily range): BP systolic 159–199; BP diastolic 53–88
--- NOTE | 2021-03-21 00:47 | NUR ---
PT RESTING QUIETLY IN BED WITH HER EYES CLOSED. NO URINE NOTED IN PURE WICK CANNISTER, CHECKED PT BRIEF AND NOTED A LARGE AMOUNT OF URINE IN BRIEF. CHANGED PT WITH ASSISATNCE FROM ON FLOOR PLASTER MOLD MAKER. UPON CHANGING NOTED A SPLIT IN THE SKIN ON PT COCCYX, ATTEMPTED TO TAKE PHOTO WITHOUT SUCCESS, FOLLOWING CHANGING NOTED PHOTO DIDNT SAVE TO [place]. WILL ADVISE DAY SHIFT TO TRY AND CAPTURE ANOTHER PHOTO. APPLIED A THICK LAYER OF BARRIER CREAM TO COCCYX AND BUTTOCKS FOR PROTECTION. ALSO NOTED REDDENED OPEN, SUSPECTED, FUNGAL AREAS. APPLIED POWDER TO AREAS, WILL ADVISED DAY SHIFT NURSE ABOUT NEED FOR NYSTATIN POWDER FOR TREATMENT. REPOSITIONED PURE WICK. SAFETY PRECAUTIONS REMAIN IN PLACE, BED IN LOW POSITION, CALL LIGHT WITHIN REACH. WILL MONITOR
--- NOTE | 2021-03-21 01:33 | NUR ---
CALL PLACED TO RAILROAD CAR LOADER PHYSICIAN REGARDING B/P THAT HAS BEEN TRENDING UP YESTERDAY AND SO FAR TODAY. MESSAGE LEFT ON VM WILL WAIT FOR RETURN PHONE CALL. PT IS NOT IN CRISIS AT THIS TIME. WILL MONITOR
--- NOTE | 2021-03-21 01:50 | NUR ---
ATTEMPTED AGAIN TO REACH GOLD RECLAIMER PHYSICIAN WITHOUT SUCCESS. SPOKE WITH BANK COMPLIANCE OFFICER THAT ADVISED TO INITIATE CHAIN OF COMMAND PROCEDURES AND CALL THE NEXT PHYSICIAN.
--- NOTE | 2021-03-21 02:01 | NUR ---
FOLLOWING CHAIN OF COMMAND SPOKE WITH PHYSICIAN NEXT IN LINE AND RECEIVED NEW ORDERS FOLLOWS: AMLODIPINE 5MG PO QD, IST DOSE NOW AND LABATELOL 10MG IV PRN Q6HRS FOR SBP>170. ORDERS WRITTEN IN CHART AND FAXED NEW ORDERS TO [facility] @ 0200. ONCE PHARMACY UPDATES EMAR, WILL ADMINSTER AMLODIPINE.
--- NOTE | 2021-03-21 02:10 | NUR ---
IST DOSE OF AMLODIPINE JUST ADMINSTERED, WILL RECHECK B/P IN APPROXIMATLY ONE HOUR TO MONITOR FOR EFFECTIVENESS OF MEDICATION
--- NOTE | 2021-03-21 04:47 | NUR ---
PT RESTING QUIETLY AT THIS TIME WITH EYES CLOSED. NO COMPLAINTS VOICED. NO S/S OF DISTRESS NOTED. B/P RECHECK FOLLOWING AMLODIPINE ADMINSTRATION, 164/88. IV LABATELOL IV HAS PARAMETERS OF GREATER THAN 170 SBP. SAFETY PRECAUTIONS REMAIN IN PLACE. WILL CONTINUE TO MONITOR
[2021-03-21 05:06] LABS: HEMATOCRIT 35.6 % (37.0-47.0); HEMOGLOBIN 10.7 g/dl (12.0-16.0); IMMATURE GRANULOCYTES 0.6 % (0.0-5.0); MEAN CELL VOLUME 98.3 fL CALC (80.0-100.0); MEAN CORPUSCULAR HGB 29.6 pG CALC (26.0-32.0); MEAN CORPUSCULAR HGB CONC 30.1 g/dL CAL (32.0-36.0); NEUT# 4.99 thou/uL (2.00-7.15); RED BLOOD COUNT 3.62 mill/uL (4.20-5.60); RED CELL DISTRI WIDTH 14.2 % (11.5-15.5)
[2021-03-21 05:20] LABS: ALBUMIN 3.3 g/dL (3.2-5.0); ALKALINE PHOSPHATASE 83 u/l (38-126); ANION GAP 11 (6-22 (CALC)); BUN 21 mg/dL (7-17); BUN/CREATININE RATIO 30 (12-20 (CALC)); CARBON DIOXIDE 31 mmol/l (22-30); CHLORIDE 99 mmol/l (95-108); CREATININE 0.7 mg/dL (0.5-1.0); GFR > 60 ML/MIN (>=60 (CALC)); GFR FOR AFR.AMER. > 60 ML/MIN (>=60 (CALC)); POTASSIUM 4.9 mmol/l (3.5-5.1); SGOT/AST 16 u/l (14-36); SODIUM 136 mmol/l (137-146); TOTAL PROTEIN 6.8 g/dL (6.3-8.2)
[2021-03-21 05:55] LABS: BILIRUBIN, TOTAL 0.2 mg/dL (0.0-1.4)
--- NOTE | 2021-03-21 06:10 | NUR ---
REPORT RECEIVED FROM CARLOS PAUL
--- NOTE | 2021-03-21 07:15 | NUR ---
PT RESTING IN SEMI FOWLERS POSITION,A&O X3;VS OBTAINED AND ASSESSMENT COMPLETED,CURRENT BP 199/85 HR 74;ALL MORNING MEDICATIONS ADMINISTERED AT THIS TIME;PT REPORTS GENERALIZED PAIN RATING 10/10 ON THE PAIN SCALE AND REQUESTS PAIN MEDICATION, PT MEDICATED WITH PRN TYLENOL 650MG PO;RESPIRATIONS EVEN AND UNLABORED ON RA,CLEAR LUNG SOUNDS NOTED;ABDOMEN SOFT ON PALPATION AND ACTIVE IN ALL 4 QUADRANTS;WEAK PEDAL PULSES;SCABBED AREAS NOTED TO BLE;RT TL IJ PATENT INFUSING NS @ 10ML/HR,SITE APPEARS HEALTHY;ACCUCHECK 112, NO COVERAGE NEEDED;TELE MONITORING IN PLACE;PT DENIES ANY ADDITIONAL NEEDS AND IS ENCOURAGED TO CALL FOR ASSISTANCE IF NEEDED;FALL PRECAUTIONS IN PLACE WITH BED IN THE LOWEST POSITION AND CALL LIGHT IN REACH;WILL CONTINUE TO MONITOR
--- NOTE | 2021-03-21 08:47 | NUR ---
BP RE-CHECK 171/67 HR 75
--- NOTE | 2021-03-21 09:30 | NUR ---
PT REPORTS BACK PAIN RATING 6/10 ON THE PAIN SCALE AND REQUESTS PAIN MEDICATION, PT MEDICATED WITH PRN ULTRAM 50MG PO AT THIS TIME;WILL CONTINUE TO MONITOR FOR EFFECTIVENESS
--- NOTE | 2021-03-21 11:16 | NUR ---
AT BEDSIDE DISCUSSING POC.
--- NOTE | 2021-03-21 11:45 | NUR ---
PT RESTING IN SEMI FOWLERS POSITION;RESPIRATIONS EVEN AND UNLABORED ON RA;PT DENIES ANY CURRENT PAIN OR DISCOMFORTS;TELE MONITORING IN PLACE;IV SITE PATENT INFUSING NS WITH EASE PER ORDER;PT EDUCATED ON PLANS TO D/C HOME AND VERBALIZES UNDERSTANDING;ENCOURAGED TO CALL FOR ASSISTANCE IF NEEDED;CALL LIGHT IN REACH;WILL CONTINUE TO MONITOR
[2021-03-21] MEDS ORDERED: AMLODIPINE BESYL5 MG PO (11:58)
[2021-03-21] MEDS ORDERED: ELIQUIS2.5 MG PO (11:58)
--- NOTE | 2021-03-21 12:40 | NUR ---
PT CURRENT BP 174/74 HR 78. PT MEDICATED WITH SCHEDULED LOSARTAN PER ORDER.DISCHARGE INSTRUCTIONS PROVIDED AT THIS TIME;RX FOR ELIQUS AND NORVASC PROVIDED;PT DENIES ANY ADDITIONAL NEEDS;AWAITING BP TO BE BELOW SYSTOLIC 140 FOR D/C HOME PER MD;CALL LIGHT IN REACH;WILL CONTINUE TO MONITOR
--- NOTE | 2021-03-21 13:27 | NUR ---
PT CURRENT BP 193/80 HR 73. PT TO BE MEDICATED WITH PRN LABETOLOL SLOW IVP BY CARLOS DUNN;WILL CONTINUE TO MONITOR FOR EFFECTIVENESS
--- NOTE | 2021-03-21 13:50 | NUR ---
PHYSICAL THERPAY AT BEDSIDE
--- NOTE | 2021-03-21 14:01 | NUR ---
CURRENT BP 159/53 HR 73. NOTIFIED. PER IT IS OK TO D/C PT HOME.
--- NOTE | 2021-03-21 14:18 | NUR ---
RT TL IJ REMOVED WITH CATHETER INTACT BY CARLOS DUNN. PRESSURE APPLIED AND PT TOLERATED WELL.
--- NOTE | 2021-03-21 14:42 | NUR ---
Discharge instructions given. Patient verbalizes understanding of same. Discharged in stable condition via Wheelchair to Home with family. All belongings sent with pt. PT TRANSPORTED TO [facility] IN STABLE CONDITION VIA ACCOMPANIED BY ADRIANA ORLANDO.ALL BELONGINGS LEFT WITH PT.FAMILY TO TRANSPORT PT HOME
--- NOTE | 2021-03-21 15:39 | NUR ---
Patient underwent B LE AROM exercises doing hip flexion, hamstring curls, hip adduction and abduction, knee extension, gluteal squeezes, and ankle AROM for 10 reps x 3 sets with constant verbal reminders to decreae trick movements. Patient did log rolling bed mobility and sit to stand push off ADLs x 3 reps with constant verbal and tactile cuing to help decrease fall risks. Patient struggled with participation doing transfers due to lingering LBP at 6/10 pain level. Patient is scheduled to be discharged today.
== END 2021-03-21 14:42 | disposition home or self-care (01) | DRG 309 ==
LOC: EDBD 21:19 → ED 21:19 → ED-I 03-18 01:12 → ED 03-18 01:38 → ED-I 03-18 01:39 → ED 03-18 01:39 → ED-I 03-18 02:23 → ICU 03-18 14:18 → MS2 03-19 15:45
PROVIDERS: Family Medicine; Nurse Practitioner; ADMIT Internal Medicine; ATTEND Internal Medicine
PROC: 02HV33Z Insertion of Infusion Device into Superior Vena Cava, Percutaneous Approach (ICD-10-PCS; principal; 2021-03-18)
PROC: 0T9B70Z Drainage of Bladder with Drainage Device, Via Natural or Artificial Opening (ICD-10-PCS; 2021-03-18)
DX: I48.91 Unspecified atrial fibrillation (principal); E87.1 Hypo-osmolality and hyponatremia; Z68.41 Body mass index [BMI] 40.0-44.9, adult; L88 Pyoderma gangrenosum; N39.0 Urinary tract infection, site not specified; I11.0 Hypertensive heart disease with heart failure; I50.9 Heart failure, unspecified; E87.6 Hypokalemia; E11.65 Type 2 diabetes mellitus with hyperglycemia; E11.40 Type 2 diabetes mellitus with diabetic neuropathy, unspecified; I25.10 Atherosclerotic heart disease of native coronary artery without angina pectoris; M06.9 Rheumatoid arthritis, unspecified; G47.30 Sleep apnea, unspecified; G89.4 Chronic pain syndrome; K21.9 Gastro-esophageal reflux disease without esophagitis; F32.9 Major depressive disorder, single episode, unspecified; F41.9 Anxiety disorder, unspecified; E66.01 Morbid (severe) obesity due to excess calories; Z79.84 Long term (current) use of oral hypoglycemic drugs; Z20.822 Contact with and (suspected) exposure to COVID-19
CPT/HCPCS: J1650; J3475; Q9967

== ENCOUNTER 2021-08-10 01:50 | Observation (INO) | payer OTHER ==
[2021-08-10] VITALS (23 sets, daily range): BP systolic 102–173; BP diastolic 57–102
[~2021-08-10] VITALS: Ht 162.6 cm; Wt 101.0 kg
[~2021-08-10 01:50] MED LIST changes: +AMLODIPINE BESYL5 MG PO; +ELIQUIS2.5 MG PO; +SPIRONOLACT50 MG PO
--- NOTE | 2021-08-10 01:51 | NUR ---
PT TO ROOM 12 VIA EMS.
[2021-08-10] MEDS ORDERED: LOSARTAN POTASS50 MG PO (02:16)
[2021-08-10] MEDS ORDERED: KLOR-CON M2020 MEQ PO (02:20)
[2021-08-10] MEDS ORDERED: CLONIDINE0.1 MG PO (02:20)
[2021-08-10] MEDS ORDERED: OMEPRAZOLE20 MG PO (02:21)
[2021-08-10] MEDS ORDERED: ALENDRONATE SOD70 MG PO (02:22)
[2021-08-10] MEDS ORDERED: NYSTOP100000 UNI EX (02:22)
[2021-08-10] MEDS ORDERED: HYDROXYCHLOR200 M1 PO (02:23)
[2021-08-10] MEDS ORDERED: OXYBUTYNIN CHLOR5 M1 PO (02:23)
[2021-08-10 02:44] LABS: HEMATOCRIT 34.8 % (37.0-47.0); HEMOGLOBIN 10.3 g/dl (12.0-16.0); IMMATURE GRANULOCYTES 1.6 % (0.0-5.0); MEAN CELL VOLUME 105.1 fL CALC (80.0-100.0); MEAN CORPUSCULAR HGB 31.1 pG CALC (26.0-32.0); MEAN CORPUSCULAR HGB CONC 29.6 g/dL CAL (32.0-36.0); NEUT# 11.03 thou/uL (2.00-7.15); RED BLOOD COUNT 3.31 mill/uL (4.20-5.60)
--- NOTE | 2021-08-10 02:53 | NUR ---
REPEATED DOSE OF CARDIZEM
[2021-08-10 02:57] LABS: ALBUMIN 3.5 g/dL (3.2-5.0); ALKALINE PHOSPHATASE 102 u/l (38-126); AMYLASE 46 u/l (30-110); BUN 12 mg/dL (8-23); BUN/CREATININE RATIO 19 (12-20 (CALC)); CHLORIDE 102 mmol/l (95-108); CREATININE 0.7 mg/dL (0.5-1.0); GFR > 60 ML/MIN (>=60 (CALC)); GFR FOR AFR.AMER. > 60 ML/MIN (>=60 (CALC)); LIPASE 132 u/l (23-300); POTASSIUM 4.1 mmol/l (3.5-5.1); SGOT/AST 17 u/l (9-36); SODIUM 139 mmol/l (137-146); TOTAL PROTEIN 7.4 g/dL (6.3-8.2)
[2021-08-10 03:00] LABS: ANION GAP 17 (6-22 (CALC)); CARBON DIOXIDE 24 mmol/l (22-30)
[2021-08-10 03:08] LABS: MYOGLOBIN 56 ng/mL (0 - 62)
[2021-08-10 03:26] LABS: PROTHROMBIN TIME 10.8 SECONDS (9.0-12.5)
--- NOTE | 2021-08-10 04:20 | NUR ---
BACK FROM CT. RESTING BUT AWAKENS AND C/O EPIGASTRIC PAIN 04/04. MEDICATIONS GIVEN.
--- NOTE | 2021-08-10 04:49 | NUR ---
CALL RECEIVED FROM Xavier PHILLIPS IN ED REQUESTING ROOM ASSIGNMENT. PRINTED SBAR RECEIVED. ICU #2 ASSIGNED AT THIS TIME. SBAR REVIEWED. ICU#2 PRPARED TO RECEIVE PT.
--- NOTE | 2021-08-10 05:00 | NUR ---
PT RESTING. VSS
--- NOTE | 2021-08-10 05:05 | NUR ---
16 FR KINGSTON CATHETER PLACED WITH RETURN OF DARK CLOUDY URINE. SECURED TO LEFT LEG. NOTED RIGHT LABIA WITH 2 AREAS OF BREAKDOWN.
--- NOTE | 2021-08-10 05:24 | NUR ---
TELEPHONE REPORT RECEIVED FROM Gaviota WEATHERS RN IN ED.
[2021-08-10 05:58] LABS: URINE BILIRUBIN - DIPSTICK NEGATIVE (NEGATIVE); URINE BLOOD DIPSTICK TRACE-INTACT (NEGATIVE); URINE COLOR YELLOW; URINE GLUCOSE - DIPSTICK NEGATIVE (NEGATIVE); URINE KETONE 15 mg/dL (NEGATIVE); URINE PH 5.5 (4.5-8.0); URINE SPECIFIC GRAVITY 1.015; URINE UROBILINOGEN - DIPSTICK 0.2 E.U./dL (0.2)
[2021-08-10 06:00] LABS: URINE LEUK ESTERASE SMALL (NEGATIVE); URINE NITRITE - DIPSTICK POSITIVE (Negative)
--- NOTE | 2021-08-10 06:00 | NUR ---
TRANSFERRED TO ICU BED 2 WITH REPORT GIVEN TO SHERICE GONZALEZ.
[2021-08-10 06:01] LABS: URINE PROTEIN - DIPSTICK NEGATIVE (NEG-TRACE)
--- NOTE | 2021-08-10 06:02 | NUR ---
PT ARRIVES FROM ED VIA STRETCHER ACCOMPANIED BY Gaviota WEATHERS RN. PT SLID OVER TO BED WITH ASSIST FROM Gaviota WEATHERS RN, Oscar CONTRERAS RN, AND Dandy LAGOS RRT. CARDIZEM INFUSING @ 10MG/H TO R-AC #20G. IV SITE PATENT. 02 AT 2L/MIN VIA NC. SP02 100%. RESPIRATIONS REGULAR AND UNLABORED. CONNECTED TO MONITOR. RYTHM AFIB 110.
[2021-08-10 06:04] LABS: URINE WBC 50-100 WBC/hpf (0-5)
--- NOTE | 2021-08-10 07:57 | NUR ---
ALERT AND ORIENTED X4. NO C/O PAIN VOICED. SITTING UP IN BED HAVING BREAKFAST AT THIS TIME.
--- NOTE | 2021-08-10 08:00 | NUR ---
CARDIZEM GTT INCREASED TO 15MH/HR.
--- NOTE | 2021-08-10 08:35 | NUR ---
CASE MANAGEMENT IN TO SEE PT.
--- NOTE | 2021-08-10 09:19 | NUR ---
DR ARMENTA IN TO SEE PT.
--- NOTE | 2021-08-10 10:03 | NUR ---
MEDS GIVEN PER MAR. OT IN TO SEE PT.
--- NOTE | 2021-08-10 10:20 | NUR ---
CARDIZEM DECREASED TO 10MG/HR.
--- NOTE | 2021-08-10 12:00 | NUR ---
CARDIZEM TITRATED TO 5MG.
--- NOTE | 2021-08-10 12:16 | NUR ---
HAVING LUNCH AT THIS TIME.
--- NOTE | 2021-08-10 13:33 | NUR ---
CARDIZEM GTT TITRATED OFF.
--- NOTE | 2021-08-10 17:13 | NUR ---
OT screen complete: pt would benefit from skilled OT services to increase I with ADLs.
--- NOTE | 2021-08-10 19:00 | NUR ---
REPORT RECEIVED FROM Marline HERNANDEZ RN. CARE OF PT ASSUMED AT THIS TIME.
[2021-08-11] VITALS (16 sets, daily range): BP systolic 122–185; BP diastolic 57–83
--- NOTE | 2021-08-11 00:25 | NUR ---
Gaviota BOYD EDUCATION CONSULTANT IN ROOM COLLECTING BLOOD SAMPLE.
--- NOTE | 2021-08-11 05:02 | NUR ---
Gaviota BOYD SOLE LEVELING MACHINE OPERATOR IN ROOM COLLECTING BLOOD SAMPLE.
--- NOTE | 2021-08-11 05:28 | NUR ---
200ML JACOBY URINE DRAINED FROM [place]. APPLE JUICE PROVIDED TO PT PER HER REQUEST. DENIES FURTHER NEEDS AT THIS TIME.
[2021-08-11 06:07] LABS: ANION GAP 10 (6-22 (CALC)); BUN 9 mg/dL (8-23); BUN/CREATININE RATIO 14 (12-20 (CALC)); CARBON DIOXIDE 25 mmol/l (22-30); CHLORIDE 108 mmol/l (95-108); CREATININE 0.7 mg/dL (0.5-1.0); GFR > 60 ML/MIN (>=60 (CALC)); GFR FOR AFR.AMER. > 60 ML/MIN (>=60 (CALC)); POTASSIUM 4.4 mmol/l (3.5-5.1); SODIUM 139 mmol/l (137-146)
[2021-08-11 06:15] LABS: MAGNESIUM 2.1 mg/dL (1.6-2.3)
--- NOTE | 2021-08-11 08:00 | NUR ---
HAVING BREAKFAST AT THIS TIME.
--- NOTE | 2021-08-11 08:22 | NUR ---
TAKES MEDS WHOLE S DIFFICULTY. PRN BENTYL GIVEN FOR C/O ABD PAIN.
[2021-08-11 09:17] LABS: HEMATOCRIT 29.6 % (37.0-47.0); HEMOGLOBIN 8.7 g/dl (12.0-16.0); IMMATURE GRANULOCYTES 1.2 % (0.0-5.0); MEAN CORPUSCULAR HGB 30.9 pG CALC (26.0-32.0); MEAN CORPUSCULAR HGB CONC 29.4 g/dL CAL (32.0-36.0); NEUT# 6.7 thou/uL (2.00-7.15); RED BLOOD COUNT 2.82 mill/uL (4.20-5.60)
--- NOTE | 2021-08-11 09:20 | NUR ---
PRN APAP GIVEN FOR C/O GENERALIZED PAIN.
--- NOTE | 2021-08-11 10:03 | NUR ---
BED BATH OFFERED TO PT. PT DECLINED AT THIS TIME. PT REQUEST NYSTATIN POWDER FOR ABD FOLD AND UNDER BILAT BREAST THEN WOULD CONSIDER BED BATH. DR ARMENTA MADE AWARE AWAITING ORDER.
--- NOTE | 2021-08-11 10:30 | NUR ---
DRESSING TO BILAT LOWER EXT AND LT POSTERIOR THIGH CHANGED.
--- NOTE | 2021-08-11 12:19 | NUR ---
HAVING LUNCH AT THIS TIME.
--- NOTE | 2021-08-11 15:00 | NUR ---
TRANSPORTED VIA WHEELCHAIR SAFELY TO ROOM 271. INTRODUCED TO RECIEVING RN AT BEDSIDE. REVIEWED PT CARE PLAN.
--- NOTE | 2021-08-11 15:23 | NUR ---
PATIENT RECEIVED FROM ICU TO MED SURG. PATIENT ORIENTED TO ROOM AND NEW SURROUNDINGS AT THIS TIME. PATIENT DENIES ANY NEEDS AND PATIENT PRESENTS TO UNIT WITH RASH ON ABDOMINAL WALL AND UNDER BREAST FOLDS AND ADOMINAL FOLDS WELL. NYSTATIN POWDER WAS DISTRIBUTED ON ALL AREA'S AT THIS TIME. [place] CATH PRESENT AND DRAINING YELLOW URINE AT THIS TIME. PATIENT PRESENTED TO UNIT WITH MULTIPLE WOUNDS RT AND LT LOPEZ LT. POSTIEOR THIGH. (PICTURES ARE ON CHART). SIDERAILS ARE UP X 2 CALL LIGHT IS WITHIN REACH.
--- NOTE | 2021-08-11 15:43 | NUR ---
PATIENT ADOMINAL AND BREAST FOLDS WASHED WITH SOAP AND WATER AND NYAMYC POWDER APPLIED TO ALL AREAS OF RASH AT THIS TIME.
--- NOTE | 2021-08-11 16:00 | NUR ---
PATIENT RESTING IN BED AT THIS TIME. DENIES ANY NEEDS AND OR PAIN AT THIS TIME. SIDERAILS ARE UP CALL LIGHT IS WITHIN REACH.
--- NOTE | 2021-08-11 18:15 | NUR ---
PATIENT GIVEN AT THIS TIME 650MG OF TYLENOL FOR HEADACHE AND PAIN LEVEL OF 4 OUT OF 0-10 PAIN SCALE. SIDERAILS ARE UP CALL LIGHT WITHIN REACH AT THIS TIME. WILL CONTINUE TO MONITOR.
--- NOTE | 2021-08-11 19:19 | NUR ---
PATIENT RESTING IN BED AT THIS TIME-AWAKE ALERT AND ORIENTEDX3. PATIENT IS C/O NAUSEA AND ABD PAIN. MEDICATED WITH ZOFRAN 4MG IVP VIA RAC SITE. SITE IS HEALTHY WITH GOOD BLOOD RETURN. TELE MONITOR IN PLACE. [place] CATH PATENT AND DRAINING JACOBY URINE. SAFETY PRECAUTIONS REINFORCED. CALL LIGHT IN REACH. WILL CONT TO MONITOR.
--- NOTE | 2021-08-11 22:25 | NUR ---
PATIENT RESTING IN BED. DRESSINGS TO BOTH LOWER LEGS ARE INTACT. DRESSING TO LEFT THIGH IS CDI. PROVIDED MCKENNA AND [place] CATH CARE USING SOAP AND WATER. PATIENT WITH RASH UNDER BOTH BREASTS AND GROIN FOLDS. WASHED WITH SOAP AND WATER AND NYSTATIN POWDER APPLIED. TURNED AND REPOSITIONED. PROVIDED PATIENT WITH APPLE [employer]. STATES THAT HER NAUSEA HAS IMPROVED. SAFETY PRECAUTIONS REINFORCED. CALL LIGHT IN REACH. WILL CONT TO MONITOR.
[2021-08-12] VITALS: BP 140/72
--- NOTE | 2021-08-12 01:32 | NUR ---
PATIENT IS CURRENTLY RESTING IN BED WITH EYES CLOSED. RESPS ARE EVEN AND UNLABORED. FEET ARE ELEVATED ON PILLOW. TELE MONITOR IN PLACE-LAST READING WAS [id number]. [place] PATENT AND DRAINING JACOBY URINE. SALINE LOCK INTACT TO RAC. CALL LIGHT IN REACH. WILL CONT TO MONITOR.
[2021-08-12 04:00] VITALS: BP 125/66
--- NOTE | 2021-08-12 04:23 | NUR ---
PATIENT RESTING IN BED AT THIS TIME WITH EYES CLOSED. RESPS ARE EVEN AND UNLABORED. TELE MONITOR IN PLACE-LAST READING WAS SR-74. [place] PATENT AND DRAING CLOUDY JACOBY URINE. CALL LIGHT IN REACH. WILL CONT TO MONITOR.
[2021-08-12 07:47] LABS: HEMATOCRIT 29.7 % (37.0-47.0); HEMOGLOBIN 8.8 g/dl (12.0-16.0); MEAN CELL VOLUME 105.3 fL CALC (80.0-100.0); MEAN CORPUSCULAR HGB 31.2 pG CALC (26.0-32.0); MEAN CORPUSCULAR HGB CONC 29.6 g/dL CAL (32.0-36.0); RED BLOOD COUNT 2.82 mill/uL (4.20-5.60); RED CELL DISTRI WIDTH 14.7 % (11.5-15.5)
[2021-08-12 07:50] VITALS: BP 160/87
--- NOTE | 2021-08-12 07:50 | NUR ---
REPORT RECEIVED FROM CARLOS GILMORE. PT SITTING UP IN BED EATING BREAKFAST; ALERT AND OREINTED X 3. C/O GENERALIZED ACHES AND REQUESTS TYLENOL. RESPIRATIONS EVEN AND UNLABORED ON ROOM AIR. CUSTOM SHOP WORKER ON. IV SITE APPEARS HEALTHY AND FLUSHES. [place] CATHETER DRAINING CLOUDY, JACOBY URINE IN ADEQUATE AMOUNTS. DRESSINGS TO BLE CDI. POC REVIEWED; PT ENCOURAGED TO VERBALIZE CONCERNS; STATES UNDERSTANDING. SAFETY MEASURES IN PLACE. CALL LIGHT WITHIN REACH.
[2021-08-12 08:12] LABS: ANION GAP 9 (6-22 (CALC)); BUN 8 mg/dL (8-23); BUN/CREATININE RATIO 15 (12-20 (CALC)); CARBON DIOXIDE 27 mmol/l (22-30); CHLORIDE 108 mmol/l (95-108); CREATININE 0.5 mg/dL (0.5-1.0); GFR > 60 ML/MIN (>=60 (CALC)); GFR FOR AFR.AMER. > 60 ML/MIN (>=60 (CALC)); MAGNESIUM 1.8 mg/dL (1.6-2.3); POTASSIUM 4.3 mmol/l (3.5-5.1); SODIUM 140 mmol/l (137-146)
--- NOTE | 2021-08-12 09:05 | NUR ---
DR. ARMENTA AND DORY SAAVEDRA AT BEDSIDE.
--- NOTE | 2021-08-12 09:58 | NUR ---
DRESSINGS TO BLE REPLACED; ZINC OXIDE APPLIED PER NEW ORDER ALONG WITH TELFA AND KERLEX. MILK OF MAG AND SENNA GIVEN FOR CONSTIPATION; PT REQUESTS TIME TO ALLOW MEDS TO WORK BEFORE GIVING SUPPOSITORY. ROCEPHIN INFUSING AT THIS TIME.
--- NOTE | 2021-08-12 10:15 | NUR ---
PHYSICAL THERPAY AT BEDSIDE.
[2021-08-12 11:06] VITALS: BP 141/85
--- NOTE | 2021-08-12 12:20 | NUR ---
HOME MEDICATIONS ADMINISTERED. PT RESTING IN BED HIGH FOWLERS FOR LUNCH. NO REQUESTS OR CONCERNS AT THIS TIME. REQUESTS TO STAY IN BED FOR NOW; ENCOURAGED TO REPOSITION HERSELF; STATES UNDERSTANDING. SINUS RHYTHM ON CEMENT RAILROAD CAR LOADER. CALL LIGHT WITHIN REACH.
[2021-08-12 15:51] VITALS: BP 122/78
--- NOTE | 2021-08-12 16:00 | NUR ---
NO CHANGES IN PT CONDITION; CONTINUES TO DECLINE SUPPOSITORY STATING THAT SHE FEELS LIKE SHE WILL HAVE TO GO SOON; INSTRUCTED TO CALL FOR ASSISTANCE TO BSC.
--- NOTE | 2021-08-12 16:45 | NUR ---
S: Patient reported feeling a little better on this date but stated that she felt that her stomach was "churning". O: Patient performed 2 x 10 each SLR 2 x 10 each hip and knee flexion 2 x 10 each hip abduction A: Patient performed all exercises with good ROM and without increased difficulty. Patient did not sit up or stand up due stomach "churning" and "discomfort". Patient will continue with exercises and will incorporate more transfers and ambulation as tolerated. P: Patient will need to continue with interventions focused on transfers, strengthening, endurance, gait training, and balance training. Patient's Am Pac score on this date was an 8 which is a discharge recommendation for an extended care facility. I agree with this recommendation at this time due to patient decreased level of function with transfers and ADLs.
[2021-08-12 19:00] VITALS: BP 138/76
--- NOTE | 2021-08-12 19:57 | NUR ---
PT RESTING IN BED WITH EYES CLOSED, PT AROUSED BY TOUCH, PT ALERT AND ORIENTED X3, NO SIGNS OF DISTRESS NOTED, RESP EVEN AND UNLABORED. NOTED SPO2 91% ON RA, OBTAINED SPO2 AT BEDSIDE PT 89-91% PT PLACED ON 02 2L NC, INCREASED TO 96%. DISCUSSED POC, PT VERBALIZED UNDERSTANDING. NOTED REDNESS TO NECK, BREAST FOLDS, AND ABDOMINAL FOLDS, NYSTATIN POWDER APPLIED. DRESSING TO BLE CDI AND DRESSING TO L POSTERIER THIGH, CDI. DISCUSSED BM, SUPPOSITORY, AND ENEMA PT REFUSED STATES SHE HAS NOT HAD A BM AND DOES NOT WANT TO HAVE A SUPPOSITORY OR ENEMA. BS ACTIVE X4 PT STATES SHE IS PASSING GAS. IV TO RAC FLUSHED WELL. ASSESSMENT COMPLETED, CALL LIGHT IN REACH,CONTINUE TO MONITOR.
[2021-08-13] VITALS: BP 146/87
--- NOTE | 2021-08-13 | NUR ---
PT RESTING IN BED WITH EYES CLOSED, NO SIGNS OF DISTRESS NOTED, RESP EVEN AND UNLABORED. CALL LIGHT IN REACH,CONTINUE TO MONITOR.
[2021-08-13 04:00] VITALS: BP 137/74
--- NOTE | 2021-08-13 04:10 | NUR ---
HYDROPULPER OPERATOR AT BEDSIDE, PT VOICES NO NEEDS OR COMPLAINTS AT THIS TIME, CALL LIGHT IN REACH,CONTINUE TO MONITOR.
[2021-08-13 04:49] LABS: HEMATOCRIT 32.9 % (37.0-47.0); HEMOGLOBIN 9.8 g/dl (12.0-16.0); MEAN CELL VOLUME 103.5 fL CALC (80.0-100.0); MEAN CORPUSCULAR HGB 30.8 pG CALC (26.0-32.0); MEAN CORPUSCULAR HGB CONC 29.8 g/dL CAL (32.0-36.0); RED BLOOD COUNT 3.18 mill/uL (4.20-5.60); RED CELL DISTRI WIDTH 14.6 % (11.5-15.5)
[2021-08-13 05:02] LABS: ANION GAP 13 (6-22 (CALC)); BUN 9 mg/dL (8-23); BUN/CREATININE RATIO 16 (12-20 (CALC)); CARBON DIOXIDE 24 mmol/l (22-30); CHLORIDE 106 mmol/l (95-108); CREATININE 0.5 mg/dL (0.5-1.0); GFR > 60 ML/MIN (>=60 (CALC)); GFR FOR AFR.AMER. > 60 ML/MIN (>=60 (CALC)); POTASSIUM 5.1 mmol/l (3.5-5.1); SODIUM 138 mmol/l (137-146)
[2021-08-13 08:00] VITALS: BP 145/82
--- NOTE | 2021-08-13 08:00 | NUR ---
PT LYING IN BED AWAKE. NO COMPLAINTS/DISTRESS AT THIS TIME. WILL CONTINUE TO MONITOR.
[2021-08-13 10:30] VITALS: BP 140/75
--- NOTE | 2021-08-13 10:45 | NUR ---
WOUNDS CLEANSED WITH NORMAL SALINE, PAT DRY, TEFLA, GAUZE/KERLIX TO COVER. RLE MEASURES 4X3X0.1CM. RIGHT POST THIGH 3X2X0.1CM. LLE MEASURES 3X2X0.1CM. LEFT POST THIGHT MEASURES 1X1X0.1CM
[2021-08-13] MEDS ORDERED: OMNICEF300 MG PO (11:03)
--- NOTE | 2021-08-13 13:37 | NUR ---
S: Patient reported that her stomach felt about the same, but was willing to get up today. O: Patient performed 1 x 10 each SLR 1 x 10 each hip and knee flexion 1 x 10 each hip abduction Bed mobility SBA x 1 Supine to sit SBA x 1 Sit to stand Min A x 1 Standing turn and pivot, weight shift, transfer assessment Min A x 1 Patient stated that she had 8/10 pain in her back after approximately 1-2 minutes of standing. A: Patient demonstrated that she was able to perform stand pivot transfer safely with B UE support. Patient was able to perform functional tasks but for a decreased duration due to back pain. Patient will require increased weight bearing to improve function, but is limited by edurance due to back pain. P: Patient will need to continue with interventions focused on strengthening, endurance, gait training, balance training, and tolerance to weight bearing activities to improve function with ADLs. Patient's Am Pac score on this date is 14 which is a discharge recommendation for home with home health care. I agree with this recommendation at this time as the patient demonstrated that she can perform ADLs in a modified manner, but still requires PT interventions.
[2021-08-13 15:06] VITALS: BP 148/79
--- NOTE | 2021-08-13 16:29 | NUR ---
Discharge instructions given. Patient verbalizes understanding of same. Discharged in stable condition via Medical Transport to Home with staff. All belongings sent with pt.
== END 2021-08-13 16:29 | disposition home health service (06) ==
LOC: ED 01:50 → ED-I 04:50 → ED 04:55 → ICU 04:56 → MS2 08-11 15:23
PROVIDERS: Emergency Medicine; Nurse Practitioner; ADMIT Hospitalist; ATTEND Internal Medicine
DX: I48.91 Unspecified atrial fibrillation (principal); N39.0 Urinary tract infection, site not specified; L88 Pyoderma gangrenosum; I11.0 Hypertensive heart disease with heart failure; I50.9 Heart failure, unspecified; E11.40 Type 2 diabetes mellitus with diabetic neuropathy, unspecified; E11.65 Type 2 diabetes mellitus with hyperglycemia; M06.9 Rheumatoid arthritis, unspecified; K59.00 Constipation, unspecified; I25.10 Atherosclerotic heart disease of native coronary artery without angina pectoris; K21.9 Gastro-esophageal reflux disease without esophagitis; F41.9 Anxiety disorder, unspecified; F32.A Depression, unspecified; B96.20 Unspecified Escherichia coli [E. coli] as the cause of diseases classified elsewhere; Z79.01 Long term (current) use of anticoagulants; Z79.899 Other long term (current) drug therapy; Z20.822 Contact with and (suspected) exposure to COVID-19
CPT/HCPCS: G0378; J3475; Q9967; S0164

== ENCOUNTER 2021-11-11 20:14 | Observation (INO) | payer OTHER ==
[2021-11-11] VITALS (7 sets, daily range): BP systolic 97–158; BP diastolic 57–100
[~2021-11-11] VITALS: Ht 162.6 cm; Wt 97.0 kg
[~2021-11-11 20:14] MED LIST changes: +ALENDRONATE SOD70 MG PO; +HYDROXYCHLOR200 M1 PO; +KLOR-CON M2020 MEQ PO; +NYSTOP100000 UNI EX; +OMEPRAZOLE20 MG PO; +OXYBUTYNIN CHLOR5 M1 PO
[2021-11-11 21:09] LABS: HEMATOCRIT 31.1 % (37.0-47.0); HEMOGLOBIN 8.8 g/dl (12.0-16.0); IMMATURE GRANULOCYTES 1.1 % (0.0-5.0); MEAN CELL VOLUME 107.2 fL CALC (80.0-100.0); MEAN CORPUSCULAR HGB 30.3 pG CALC (26.0-32.0); MEAN CORPUSCULAR HGB CONC 28.3 g/dL CAL (32.0-36.0); NEUT# 11.2 thou/uL (2.00-7.15); RED BLOOD COUNT 2.9 mill/uL (4.20-5.60); RED CELL DISTRI WIDTH 15.7 % (11.5-15.5)
[2021-11-11 21:09] LABS: URINE BLOOD DIPSTICK SMALL (NEGATIVE); URINE COLOR YELLOW; URINE GLUCOSE - DIPSTICK NEGATIVE (NEGATIVE); URINE KETONE NEGATIVE (NEGATIVE); URINE PH 5.5 (4.5-8.0); URINE PROTEIN - DIPSTICK 30 mg/dL (NEG-TRACE); URINE SPECIFIC GRAVITY >=1.030
[2021-11-11 21:12] LABS: URINE BILIRUBIN - DIPSTICK SMALL (NEGATIVE); URINE LEUK ESTERASE SMALL (NEGATIVE); URINE NITRITE - DIPSTICK POSITIVE (Negative)
[2021-11-11 21:13] LABS: URINE BACTERIA FEW hpf; URINE SQUAMOUS EPITHELIAL CELL MODERATE EPI/hpf (0-FEW)
[2021-11-11 21:30] LABS: ALBUMIN 3.3 g/dL (3.2-5.0); ALKALINE PHOSPHATASE 97 u/l (38-126); AMYLASE 66 u/l (30-110); ANION GAP 15 (6-22 (CALC)); BILIRUBIN, TOTAL 0.7 mg/dL (0.0-1.4); BUN 27 mg/dL (8-23); BUN/CREATININE RATIO 27 (12-20 (CALC)); CARBON DIOXIDE 20 mmol/l (22-30); CHLORIDE 105 mmol/l (95-108); GFR 56 ML/MIN (>=60 (CALC)); GFR FOR AFR.AMER. > 60 ML/MIN (>=60 (CALC)); LIPASE 151 u/l (23-300); POTASSIUM 5.1 mmol/l (3.5-5.1); SGOT/AST 17 u/l (9-36); SODIUM 135 mmol/l (137-146)
[2021-11-11 21:31] LABS: ACT PARTIAL THROMBO TIME 28.1 SECONDS (20.0-32.5); INTERNATIONAL NORMALIZED RATIO 1.1 RATIO (0.7-1.3); PROTHROMBIN TIME 11.6 SECONDS (9.0-12.5)
[2021-11-12] VITALS (26 sets, daily range): BP systolic 109–175; BP diastolic 55–92
--- NOTE | 2021-11-12 00:24 | NUR ---
report received from CARLOS Adams
--- NOTE | 2021-11-12 00:40 | NUR ---
female pt received to ICU bed 3 in stable condition via stretcher accompanied by CARLOS Adams; pt able to move self over to bed; admission assessment completed at this time; pt alert and oriented; c/c of flu like symptoms starting "a week ago Tuesday"; pt admits to back pain rating 6/10; repositioned; no n/v noted per commercial loan underwriter; resp even and unlabored; lungs clear; skin color wnl; ra; hr irreg; wk right pedal pulse; trace edema noted to bilat ankles; afib on monitor; abd soft with bs present; pt denies bm since "a week ago Tuesday"; pt states inability to eat or drink and need for esophageal stretching; pt admits to voiding with pain and burning; bsc; no urine to inspect at this time; #20 to rac saline locked; no redness or edema noted at site; wounds noted to ble/ bilat posterior thighs/legs, redness to abd fold; left toe edema and redness with deep lac to base of toe (between toe); dressing removed from right cain area; foul purulent drainage noted from wound; wound cleansed with saline and dressed with telfa and kerlix; plan of care/ meds explained; #22 started to lfa x1 attempt; call light within reach; will continue to monitor; see wound pics on chart
--- NOTE | 2021-11-12 00:45 | NUR ---
PT TRANSFERED TO ICU, REPORT CALLED DIANN SENT TO FLOOR
--- NOTE | 2021-11-12 02:04 | NUR ---
awake in bed; afib on monitor; iv's intact and patent; call light within reach; will continue to monitor
--- NOTE | 2021-11-12 04:06 | NUR ---
awake in bed; laboratory technical specialist at bedside; iv intact and patent to rac; afib on monitor; cardizem gtt cont at 10mg/hr; call light within reach; will continue to monitor
[2021-11-12 05:36] LABS: HEMATOCRIT 27.1 % (37.0-47.0); HEMOGLOBIN 7.8 g/dl (12.0-16.0); IMMATURE GRANULOCYTES 1.3 % (0.0-5.0); MEAN CORPUSCULAR HGB 30.2 pG CALC (26.0-32.0); MEAN CORPUSCULAR HGB CONC 28.8 g/dL CAL (32.0-36.0); NEUT# 7.95 thou/uL (2.00-7.15); RED BLOOD COUNT 2.58 mill/uL (4.20-5.60); RED CELL DISTRI WIDTH 15.7 % (11.5-15.5)
[2021-11-12 05:56] LABS: ALBUMIN 2.7 g/dL (3.2-5.0); ALKALINE PHOSPHATASE 84 u/l (38-126); ANION GAP 15 (6-22 (CALC)); BILIRUBIN, TOTAL 0.5 mg/dL (0.0-1.4); BUN 21 mg/dL (8-23); BUN/CREATININE RATIO 25 (12-20 (CALC)); CARBON DIOXIDE 18 mmol/l (22-30); CHLORIDE 111 mmol/l (95-108); CREATININE 0.8 mg/dL (0.5-1.0); GFR > 60 ML/MIN (>=60 (CALC)); GFR FOR AFR.AMER. > 60 ML/MIN (>=60 (CALC)); POTASSIUM 4.5 mmol/l (3.5-5.1); SGOT/AST 15 u/l (9-36); SODIUM 139 mmol/l (137-146); TOTAL PROTEIN 6.5 g/dL (6.3-8.2)
--- NOTE | 2021-11-12 06:15 | NUR ---
pt awake in bed; offers no complaints; no apparent distress noted; iv intact and maintained; afib on monitor; cardizem gtt cont at 10mg/hr; call light within reach
--- NOTE | 2021-11-12 07:36 | NUR ---
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 CARDIZEM DRIP HAS BEEN STOPPED DURING THE NIGHT AND PTS RATE IS 99 AND APPEARS TO BE IN SINUS RYTHMN WITH OCCASIONAL AFIB PT WATCHING TV AT THIS TIME.
--- NOTE | 2021-11-12 09:10 | NUR ---
spoke to Mrs. Iyer to verify her medications and when she took them last
--- NOTE | 2021-11-12 10:19 | NUR ---
PT INFORMED DOCTOR THAT SHE FEELS LIKE SHE CANT SWALLOW AND WAS TO HAVE A PROEDURE AT [facility] PER DR. RUIZ TO SEE WHY SHE FEELS LIKE SHE CANT SWALLOW, DR. HOLLIDAY ORDERED A SWALLOW EVALUATION, SRI DIRECTOR CALLED PT AND THEY WILL LET US KNOW WHEN THEY CAN BRING A PORTABLE UNIT TO HAVE PT GO TO FOR ONE.
--- NOTE | 2021-11-12 12:52 | NUR ---
DR KEMP ON THE PHONE WITH [facility] REGARDING TRANSFER
--- NOTE | 2021-11-12 13:00 | NUR ---
CARDIZEM TITRATED DOWN TO 5 MG/HR.
--- NOTE | 2021-11-12 14:28 | NUR ---
pt report given to tre hogde for continuation of care. pt remains pain free vital signs stable.
--- NOTE | 2021-11-12 14:36 | NUR ---
REPORT REC FROM Alayna EDMOND RN; PT CARE RESUMED
--- NOTE | 2021-11-12 17:51 | NUR ---
pt resting on stretcher watching tv, states hungry, requesting something to eat or drink. text placed to dr. parker for any orders
--- NOTE | 2021-11-12 18:34 | NUR ---
SPOKE WITH RAMESH FROM [facility]; UPDATE: NO ROOM AVAILABLE FOR PATIENT AT THIS TIME.
--- NOTE | 2021-11-12 19:45 | NUR ---
RESTING IN BED. RESP NON-LABORED. BREATH SOUNDS CLEAR. DSG CDI TO BLE. WEAKLY PALPABLE PERIPHERAL PULSES. IV INTACT IN RAC WITH NS INFUSING AT 100 ML/HR. SALINE LOCK INTACT IN LH, SITE BENIGN. POLICE DETENTION ATTENDANT SHOWS AFIB WITH OCC PVC'S. DISCUSSED PLAN OF CARE. CALL FERRIS IN REACH. RECEIVED CALL FROM [facility] TRANSFER [facility]-PATIENT ASSIGNED TO [address] [place] [address].
--- NOTE | 2021-11-12 20:04 | NUR ---
SPOKE WITH SHAR FROM [facility] REGARDING NEED FOR TRANSPORT TO [facility]. ETA 3 HOURS.
--- NOTE | 2021-11-12 23:30 | NUR ---
PER NURSING DIRECTOR OF QUALITY IMPROVEMENT TRANSFER IS BEING DELAYED D/T [facility] ON ANOTHER CALL AT THIS TIME. PATIENT INFORMED OF DELAY IN TRANSFER.
--- NOTE | 2021-11-13 | NUR ---
SPOKE WITH SHELIA FROM [facility] TRANSFER CENTER TO INFORM HER OF DELAY IN TRANSFER. SHELIA STATED SHE WILL KEEP US INFORMED IF BED REMAINS AVAILABLE.
--- NOTE | 2021-11-13 01:35 | NUR ---
RECEIVED A CALL FROM [employer] [facility] NEW ETA IS [phone].
[2021-11-13 02:39] VITALS: BP 155/85
--- NOTE | 2021-11-13 03:55 | NUR ---
SPOKE WITH SHELIA AT [facility] TRANSFER CENTER CONFIRMING BED REMAINS AVAILABLE. SHIRLEY PHONED IN, SPOKE WITH [facility]TON CONFIRMED WITH HER THAT BED IS AVAILABLE FOR PATIENT. SHIRLEY ETA BETWEEN [phone] AND [phone].
[2021-11-13 04:46] LABS: HEMATOCRIT 25.1 % (37.0-47.0); HEMOGLOBIN 7.1 g/dl (12.0-16.0); MEAN CELL VOLUME 107.3 fL CALC (80.0-100.0); MEAN CORPUSCULAR HGB 30.3 pG CALC (26.0-32.0); MEAN CORPUSCULAR HGB CONC 28.3 g/dL CAL (32.0-36.0); RED BLOOD COUNT 2.34 mill/uL (4.20-5.60); RED CELL DISTRI WIDTH 15.7 % (11.5-15.5)
[2021-11-13 05:01] LABS: BUN 14 mg/dL (8-23); BUN/CREATININE RATIO 20 (12-20 (CALC)); CARBON DIOXIDE 19 mmol/l (22-30); CREATININE 0.7 mg/dL (0.5-1.0); GFR > 60 ML/MIN (>=60 (CALC)); GFR FOR AFR.AMER. > 60 ML/MIN (>=60 (CALC)); MAGNESIUM 1.9 mg/dL (1.6-2.3); SODIUM 139 mmol/l (137-146)
[2021-11-13 05:03] LABS: ANION GAP 12 (6-22 (CALC)); CHLORIDE 113 mmol/l (95-108)
--- NOTE | 2021-11-13 05:10 | NUR ---
[facility]. ASSISTED PATIENT UP TO BSC TO VOID. PATIENT ABLE TO AMBULATE AROUND BED TO STRETCHER WITH ASSIST.
[2021-11-13 05:15] VITALS: BP 131/60
--- NOTE | 2021-11-13 05:25 | NUR ---
PATIENT LEFT UNIT VIA [facility] IN STABLE CONDITION.
--- NOTE | 2021-11-13 05:35 | NUR ---
REPORT CALLED TO ATTILA AT [facility].
--- NOTE | 2021-11-13 11:06 | NUR ---
PATIENT URINE CULTURE CAME BACK WITH >100,000 CFU/ML E. COLI THIS MORNING. PATIENT WAS TRANSFERRED OUT TO [facility] THIS MORNING. FAXED CULTURE AND SENSITIVITIES TO SIMBA AT THE HOSPITAL AT
== END 2021-11-13 05:25 | disposition short-term general hospital (02) ==
LOC: ED 20:14 → ED-I 23:30 → ED 23:56 → ICU 23:57
PROVIDERS: Hospitalist; ADMIT Internal Medicine; ATTEND Internal Medicine
DX: I48.91 Unspecified atrial fibrillation (principal); N39.0 Urinary tract infection, site not specified; L88 Pyoderma gangrenosum; R13.10 Dysphagia, unspecified; L03.032 Cellulitis of left toe; E11.40 Type 2 diabetes mellitus with diabetic neuropathy, unspecified; E11.51 Type 2 diabetes mellitus with diabetic peripheral angiopathy without gangrene; L97.829 Non-pressure chronic ulcer of other part of left lower leg with unspecified severity; L97.819 Non-pressure chronic ulcer of other part of right lower leg with unspecified severity; I10 Essential (primary) hypertension; F32.A Depression, unspecified; K21.9 Gastro-esophageal reflux disease without esophagitis; I25.10 Atherosclerotic heart disease of native coronary artery without angina pectoris; L60.2 Onychogryphosis; K80.20 Calculus of gallbladder without cholecystitis without obstruction; M06.9 Rheumatoid arthritis, unspecified; F41.9 Anxiety disorder, unspecified; B96.20 Unspecified Escherichia coli [E. coli] as the cause of diseases classified elsewhere; E66.01 Morbid (severe) obesity due to excess calories; Z79.01 Long term (current) use of anticoagulants; Z95.820 Peripheral vascular angioplasty status with implants and grafts; Z68.36 Body mass index [BMI] 36.0-36.9, adult; Z20.822 Contact with and (suspected) exposure to COVID-19
CPT/HCPCS: J0131; J1650; Q9967; S0164